=== PATIENT | female | born 1975 | race Caucasian/White ===

== ENCOUNTER 2020-08-09 07:54 | Outpatient (REF) | payer MEDICAID, SELFPAY ==
[2020-08-09 08:30] LABS: MANUAL DIFF FLAG NO
[2020-08-09 08:34] LABS: Basophils Percent Auto 0.5 % (0-2); Eosinophils Absolute Auto 0.1 X10*3/uL (0.0-0.4); Eosinophils Percent Auto 1.4 % (0-4); Hematocrit 33.2 % (37-47); Hemoglobin 10.3 g/dl (12.0-16.0); Imm Gran Abs Auto 0.02 X10*3/uL (0.00-0.03); Imm Gran Pct Auto 0.3 % (0.0-0.4); Lymphocytes Absolute Auto 2.3 X10*3/uL (1.2-4.9); Lymphocytes Percent Auto 35.4 % (20-40); Mean Corpuscular Hemoglobin 27.7 pg (27.0-33.0); Mean Corpuscular Volume 89.2 fL (80-98); Mean Platelet Volume 10.2 fL (9.4-12.3); Monocytes Absolute Auto 0.5 X10*3/uL (0.1-1.2); Monocytes Percent Auto 7.9 % (2-11); Neutrophils Absolute Auto 3.6 X10*3/uL (2.0-8.3); Neutrophils Percent Auto 54.5 % (45-73); Platelet Count 298 X10*3/uL (160-400); Red Blood Count 3.72 X10*6/uL (4.20-5.50); White Blood Count 6.6 X10*3/uL (4.8-10.8)
[2020-08-09 08:57] LABS: Anion Gap 10 (12-20); Blood Urea Nitrogen 11 mg/dL (9-16); Calcium 9.2 mg/dL (8.4-10.2); Carbon Dioxide 26 mmol/L (22-29); Chloride 107 mmol/L (96-108); Estimated Glomerular Filt Rate > 60; Glucose Fasting 95 mg/dL (60-99); Potassium 4.7 mmol/l (3.3-5.1); Sodium 138 mmol/L (135-145)
== END 2020-08-09 07:55 | disposition home or self-care (01) ==
LOC: HO.LAB 07:54
PROVIDERS: PCP Internal Medicine; Visit Provider Nurse Practitioner Family
DX: M79.602 Pain in left arm (principal)
CPT/HCPCS: 36415; 80048; 85025

== ENCOUNTER 2020-08-15 09:58 | Outpatient (REF) | payer MEDICAID, SELFPAY ==
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
== END 2020-08-15 09:59 | disposition home or self-care (01) ==
LOC: HO.HOSX 09:58
PROVIDERS: PCP Internal Medicine; Referring Provider Internal Medicine; Visit Provider Physician Assistant
DX: M25.512 Pain in left shoulder (principal); M54.12 Radiculopathy, cervical region; M79.5 Residual foreign body in soft tissue
CPT/HCPCS: 73030; 99202

== ENCOUNTER 2020-08-21 16:39 | Outpatient (REF) | payer MEDICAID, SELFPAY | END 2020-08-21 16:40 | disposition home or self-care (01) | LOC: HO.LAB 16:39 | PROVIDERS: PCP Internal Medicine; Visit Provider Internal Medicine | DX: Z20.828 Contact with and (suspected) exposure to other viral communicable diseases (principal) | CPT/HCPCS: C9803; U0003 ==

== ENCOUNTER 2020-10-11 14:00 | Outpatient (RCR) | payer MEDICAID, SELFPAY ==
--- NOTE | 2020-09-20 16:27 | MHC.PT.EP ---
[facility] [place] Office [place] Office [place] Office [address] Maryann Dunaway [address] [phone] F: [phone] F: [phone] F: [phone] F: [phone] Physical Therapy Plan of Care Date of Evaluation: 09/20/20 Date of Surgery: Diagnosis: Pain in L shoulder, radiculopathy cervical region. Assessment: Assessment reveals mild decreased left shoulder AROM, severe pain and paresthesias with movement of the left shoulder, decreased neck ROM, impaired muscle length (neck musculature), decreased strength, impaired posture/postural awareness, and tenderness to palpation around the upper trap/scalenes/levator scap mm bilaterally. Related functional limitations include: difficulty sweeping, mopping, carrying groceries, cleaning the shower, washing her axilla region in the shower, lifting anything, and reaching. Pt will benefit from trial of PT intervention in order to reduce pain and improve function. Frequency and Duration: The patient will be seen 2x/week for 5 weeks, Short Term Goals: -In 3 weeks, Pt to report less than 8/10 pain with movement of the L shoulder. -In 3 weeks, Pt to improve cervical ROM in all impaired directions by at least 10 degrees. Alf Goals: -In 5 weeks, Pt will demonstrate I w/ HEP. -In 5 weeks, Pt to demonstrate the ability to reach for a light weighted object and retrieve it from a shelf above eye level. Treatment Plan: Modalities to reduce pain, spasms and effusion. Manual therapy to restore motion and function. Therapeutic exercise to improve strength and flexibility. Neuromuscular re-education for posture and balance. Therapeutic activities to return to functional activities of daily living. Electronically signed by: Bozena Moody PT, DPT Please sign and return to therapist. Thank you for your referral.
--- NOTE | 2020-10-22 12:16 | MHC.PT.DC ---
[facility] [place] Office [place] Office [place] Office [address] Maryann Dunaway [address] [phone] F: [phone] F: [phone] F: [phone] F: [phone] Physical Therapy Discharge Report Diagnosis: Pain in L shoulder, radiculopathy cervical region. Date of Surgery: Date of Evaluation: 09/20/20 Date of Discharge: 10/22/20 Treatments to Date: 6 Cancellations to Date: 0 No Shows to Date: 0 Discharge Status: Patient Elected to Stop Recommend MD Follow-up Discharge Summary: Pt called to inform us that she would like to be discharged due to continued paresthesias in the LUE and severe pain. Repeated motion testing and cervical spurling's test did not indicate cervical origin of paresthesias. She demonstrated full AROM of the L shoulder joint with pain. Trialed 1 visit of nerve glides. D/C at this time per Pt request. Recommend MD follow up. Electronically signed by: Bozena Moody PT, DPT Please sign and return to therapist. Thank you for your referral.
== END 2020-10-22 12:31 | disposition other institution (70) ==
LOC: HO.PT 14:00
PROVIDERS: Visit Provider Physician Assistant
DX: M54.12 Radiculopathy, cervical region (principal); M25.512 Pain in left shoulder
CPT/HCPCS: 97110; 97140; 97162; 97530; 97535

== ENCOUNTER 2020-10-26 14:02 | Outpatient (REF) | payer MEDICAID, SELFPAY ==
--- NOTE | ~2020-10-26 | XR_ITS ---
EXAMINATION: XR CERVICAL SPINE CLINICAL INFORMATION: Neck pain and radiculopathy per COMPARISON: None TECHNIQUE: 3 views of the cervical spine were obtained. FINDINGS: There is mild straightening of cervical lordosis. The vertebral heights and alignment is normal. There is loss of C4-C5 and C5-C6 disc heights with mild ventral spondylosis. No acute fracture or lytic process seen. The prevertebral soft tissues are normal. XR/XR cervical spine 3V IMPRESSION: Mild degenerative disc changes C4-C5 and C5-C6 disc levels with ventral spondylosis. No visible acute fracture or dislocation seen.
== END 2020-10-26 14:03 | disposition home or self-care (01) ==
LOC: HO.XRAY 14:02
PROVIDERS: PCP Internal Medicine; Visit Provider Nurse Practitioner Family
DX: M54.12 Radiculopathy, cervical region (principal); M79.5 Residual foreign body in soft tissue
CPT/HCPCS: 72040; 99202

== ENCOUNTER 2021-02-19 12:08 | Outpatient (REF) | payer MEDICAID, SELFPAY ==
--- NOTE | ~2021-02-19 | US_ITS ---
EXAMINATION: US PELVIS TRANSVAGINAL CLINICAL INFORMATION: Irregular menstruation. COMPARISON: None. TECHNIQUE: Transcutaneous and transvaginal pelvic ultrasound. Transvaginal scanning was performed after voiding to better evaluate the endometrium and adnexa. FINDINGS: The uterus measures 13.4 x 4.5 x 7.3 cm. The uterus is anteverted. No suspicious abnormalities region of the cervix. Nabothian cysts present. The uterine contour is smooth. The endometrium measures 1.2 cm. No focal abnormalities within the myometrium. The right ovary measures approximately 2.7 x 1.1 x 1.3 cm. The calculated right ovarian volume is approximately 2.0 mL. No abnormal adnexal mass is identified. There is normal vascular flow present. The left ovary measures 2.8 x 2.1 x 2.5 cm. The calculated left ovarian volume is approximately 7.9 mL. There is a 2.7 x 1.7 x 2.7 cm simple cyst present. No suspicious masses seen. There is normal vascularity present. No significant free pelvic fluid. US/US pelvic and transvaginal IMPRESSION: Simple-appearing left ovarian cyst. No significant abnormality appreciated.
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
== END 2021-02-19 12:09 | disposition home or self-care (01) ==
LOC: HO.US 12:08
PROVIDERS: PCP Internal Medicine; Visit Provider Internal Medicine
DX: N92.6 Irregular menstruation, unspecified (principal); W34.00XS Accidental discharge from unspecified firearms or gun, sequela
CPT/HCPCS: 70150; 76830; 76856

== ENCOUNTER 2021-06-11 12:51 | Outpatient (REF) | payer MEDICAID, SELFPAY ==
--- NOTE | ~2021-06-11 | US_ITS ---
EXAMINATION: US DIAGNOSTIC ULTRASOUND BREAST, LEFT CLINICAL INFORMATION: Left breast lump 12:00 position. COMPARISON: Mammogram of same day. TECHNIQUE: Ultrasound of the breast is performed with real-time andujar scale imaging and color Doppler. FINDINGS: Targeted ultrasound evaluation to region of palpable abnormality did not demonstrate any abnormal cystic or solid mass. No region of abnormal distal sound shadowing appreciated. Results are provided to the patient at time of visit by the technologist. US/US breast LT limited IMPRESSION: No mammographic or ultrasound findings to suggest malignancy. ASSESSMENT: BI-RADS 1: Negative RECOMMENDATION: 1. Patient should be managed based on the clinical impression 2. Otherwise, routine annual screening mammography.
--- NOTE | ~2021-06-11 | MM_ITS ---
EXAMINATION: MM DIAGNOSTIC DIGITAL BREAST TOMOSYNTHESIS, BILATERAL US TARGETED BREAST ULTRASOUND, LEFT CLINICAL INFORMATION: Left breast lump. There are bilateral breast implants. The lifetime risk of breast cancer based on the Tyrer-Cuzick Model is 6.5%. COMPARISON: Mammography: None. TECHNIQUE: Digital breast tomosynthesis is performed in both the craniocaudal and mediolateral oblique views along with computer-aided detection (CAD). Synthesized 2-D images are generated from the tomosynthesis. Huber implant displaced views also performed. Targeted left breast ultrasound. FINDINGS: There are scattered areas of fibroglandular density (ACR BI-RADS breast composition Category b). There are no significant masses, abnormal calcifications, or other abnormalities. Targeted ultrasound evaluation to region of palpable abnormality did not demonstrate any abnormal cystic or solid mass. No region of abnormal distal sound shadowing appreciated. Results are provided to the patient at time of visit by the technologist. MM/MM tomosynthesis diagnostic BI IMPRESSION: No mammographic or ultrasound findings to suggest malignancy. ASSESSMENT: BI-RADS 1: Negative. RECOMMENDATION: 1. Patient should be managed based on the clinical impression. 2. Otherwise, routine annual screening mammography. This patient's information was entered into a reminder system with a target due date for their next mammogram.
== END 2021-06-11 12:52 | disposition home or self-care (01) ==
LOC: HO.MAMMO 12:51
PROVIDERS: Visit Provider Advanced Practice Midwife
DX: N63.42 Unspecified lump in left breast, subareolar (principal)
CPT/HCPCS: 76642; 77062; 77066

== ENCOUNTER 2021-06-27 22:06 | Emergency (ER) | payer MEDICAID, SELFPAY ==
[2021-06-27 22:57] LABS: MANUAL DIFF FLAG NO
[2021-06-27 22:58] LABS: Basophils Percent Auto 0.3 % (0-2); Eosinophils Absolute Auto 0.1 X10*3/uL (0.0-0.4); Eosinophils Percent Auto 1.4 % (0-4); Hematocrit 38.7 % (37-47); Hemoglobin 13.4 g/dl (12.0-16.0); Imm Gran Abs Auto 0.02 X10*3/uL (0.00-0.03); Imm Gran Pct Auto 0.2 % (0.0-0.4); Lymphocytes Percent Auto 34.9 % (20-40); Mean Corpuscular HGB Conc 34.6 g/dl (31.0-35.0); Mean Corpuscular Hemoglobin 31.5 pg (27.0-33.0); Mean Corpuscular Volume 91.1 fL (80-98); Mean Platelet Volume 10.2 fL (9.4-12.3); Monocytes Absolute Auto 0.7 X10*3/uL (0.1-1.2); Monocytes Percent Auto 8.2 % (2-11); Neutrophils Absolute Auto 4.8 X10*3/uL (2.0-8.3); Platelet Count 263 X10*3/uL (160-400); Red Blood Count 4.25 X10*6/uL (4.20-5.50); Red Cell Distribution Width 12.4 % (11.0-16.0); White Blood Count 8.7 X10*3/uL (4.8-10.8)
[2021-06-27 23:01] VITALS: BP 110/66; PULSE 74; RESP 16; TEMP 36.6; O2SAT 95; BMI 31.8
[2021-06-27 23:19] LABS: Alanine Aminotransferase 16 U/L (0-31); Albumin Level 4.3 g/dL (3.5-5.0); Alkaline Phosphatase 81 U/L (39-117); Anion Gap 12 (12-20); Aspartate Amino Transferase 13 U/L (5-31); Bilirubin Total 0.3 mg/dL (0.0-1.0); Blood Urea Nitrogen 10 mg/dL (9-16); Carbon Dioxide 27 mmol/L (22-29); Chloride 106 mmol/L (96-108); Creatinine Clr Calc Pharmacy 79.6; Estimated Glomerular Filt Rate > 60; Glucose Random 99 mg/dL (60-115); Lipase 58 U/L (8-78); Potassium 4.2 mmol/L (3.3-5.1); Sodium 141 mmol/L (135-145); Total Protein 7.4 g/dL (6.5-8.0)
[2021-06-28 02:00] VITALS: BP 120/72; PULSE 55; RESP 15; TEMP 36.6; O2SAT 95
[2021-06-28] MEDS: Lidocaine HCl Viscous 2 % 15 ML SOLUTION 10 ML MUCOUS MEM (02:25)
[2021-06-28] MEDS: PHENobarb/Hyoscy/Atropine/Scop 10 ML ELIXIR PO (02:25)
[2021-06-28] MEDS: Magnesium Hydrox/Alum Hydrox 30 ML ORAL.SUSP PO (02:25)
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
== END 2021-06-28 03:08 | disposition home or self-care (01) ==
PROVIDERS: Emergency Provider Emergency Medicine Emergency Medical Services; PCP Internal Medicine
DX: K29.00 Acute gastritis without bleeding (principal)
CPT/HCPCS: 36415; 80053; 83690; 85025; 99283; 99284

== ENCOUNTER → 2021-10-14 13:12 | Outpatient (REF) | payer MEDICAID, SELFPAY | LOC: HO.CARD 13:12 | PROVIDERS: PCP Internal Medicine; Referring Provider Nurse Practitioner Primary Care; Visit Provider Internal Medicine | DX: R07.89 Other chest pain (principal); R00.1 Bradycardia, unspecified; R42 Dizziness and giddiness; R55 Syncope and collapse | CPT/HCPCS: 93005; 99202 ==

== ENCOUNTER → 2021-10-30 10:02 | Outpatient (REF) | payer MEDICAID, SELFPAY ==
--- NOTE | 2021-10-30 10:06 | ECG_ITS ---
Hook-up date: 2021-10-30 10:57:00 Duration: 28:05:00 Test Indications: SYNCOPE AND COLLAPSE Medications: 15575 QRS complexes * Ventricular ectopics which represent % of total QRS comp. 3 Supraventricular ectopics which represent <1 % of total QRS comp. * Paced QRS complexs which represent % of total QRS comp. VENTRICULAR ECTOPY * Isolated * Bigeminal Cycles * Couplets * Runs * Beats in Runs * Beats LONGEST at * BPM at :: -- * Beats FASTEST at * BPM at :: -- SUPRAVENTRICULAR ECTOPY 3 Isolated 0 Couplets 0 Runs 0 Beats in Runs * Beats LONGEST at * BPM at :: -- * Beats FASTEST at * BPM at :: -- HEART RATES 39 MIN at 05:23:35 2021-10-31 67 AVG 132 MAX at 06:58:59 2021-10-31 LONGEST RR 1.7200 secs at 05:01:11 2021-10-31 S-T LEVELS Channel 1 - 128 mm at 10:57:00 2021-10-30 - 128 mm at 10:57:00 2021-10-30 Channel 2 - 128 mm at 10:57:00 2021-10-30 - 128 mm at 10:57:00 2021-10-30 Channel 3 - 128 mm at 03:01:61 -- - 128 mm at 03:01:61 Underlying rhythm is sinus; Average ventricular rate 67/min; range 39-132/min; Very rare supraventricular ectopy; No sustained arrhythmias or pauses or heart blocks; Symptoms in diary including chest tightness, dizziness correspond to sinus rhythm. Referred By: Irma Hernandez Overread By: IRMA HERNANDEZ
--- NOTE | 2021-10-30 10:06 | CA_ITS ---
Acquisition Time: 2021-10-30 11:04:14 Total Exercise Time: 00:04:14 Test Indications: BRADYCARDIA Medications: SEE NOTES Protocol: LISA Max HR: 157 BPM 90% of Pred: 173 BPM Max BP: 156/076 mmHG Max Work Load: 6.0 METS Exercise stress test with exercise 4 min 14 sec of Lisa protocol, with moderate to severe shortness of breath and request to stop, no chest discomfort, without arrythmia, with normal chronotropic response ( achieving 90% MPHR, heart rate 157) and normotensive response to exercise, without EKG changes meeting criteria for ischemia. In recovery her breathing improved quickly with rest. Test reviewed with Dr Mcfadden. Referred By: David Armstrong Overread By: SHIRA VERGARA
== END ==
LOC: HO.CARD 10:02
PROVIDERS: Visit Provider Internal Medicine
DX: R55 Syncope and collapse (principal); R00.1 Bradycardia, unspecified
CPT/HCPCS: 93017; 93225; 93226

== ENCOUNTER → 2021-11-28 08:21 | Outpatient (REF) | payer MEDICAID, SELFPAY ==
--- NOTE | 2021-11-28 08:24 | CA_ITS ---
Transthoracic Echocardiogram Patient (Last, First, Middle): Vivi Narayanan, Gender: Female Date of : 1975 Age: 46 Procedure Date: 11/28/2021 Procedure Type: Transthoracic Echocardiogram Location: OP Height: 157.48 cm Weight: 78.93 kg BSA: 1.80 m2 Heart Rate: bpm BP: 95 / 65 mmHg Disposal Operator: DERIAN Referring MD: David Armstrong MD Parcel Post Clerk: Chico Sawyer MD Symptoms: I25.10 - Atherosclerotic heart disease of [place] coronary... Study Quality: Fair ECG Rhythm: Sinus Conclusions: - Normal study Findings Left Ventricle Normal left ventricular size, thickness, and systolic function. The visually estimated ejection fraction is between 60-65%. Spectral Doppler is indicative of a normal filling pattern. Measured peak global longitudinal endocardial strain is -19.1% which is within normal limits Right Ventricle Normal right ventricular cavity size and systolic function. Atria Both atria are normal in size. There is no evidence of interatrial shunt. Aortic Valve Normal aortic valve structure and function. There is no aortic valve stenosis. There is no aortic valve regurgitation. Mitral Valve Normal mitral valve structure and function. There is trace mitral valve regurgitation. There is no mitral valve stenosis. Pulmonic Valve The pulmonic valve is likely normal. There is trace pulmonic valve regurgitation. Tricuspid Valve Normal tricuspid valve structure. There is trace tricuspid valve regurgitation. The right ventricular systolic pressure is normal. Normal right atrial pressure. There is no evidence of pulmonary hypertension. Great Vessels All visible segments of the aorta are normal in size. The pulmonary artery was not well visualized. Venous The inferior vena cava is normal in size and collapses greater than 50% with inspiration. Pericardium/Pleural There is no evidence of pericardial effusion. Prior Study Comparison No prior study available for comparison. Measurements 2D Linear Measurements IVSd: 0.80 0.6-0.9/0.6-1.0 cm LVIDd: 5.00 3.9-5.3/4.2-5.9 cm LVIDd Index: 2.78 2.4-3.2/2.2-3.1 cm/m2 LVIDs: 3.06 2.0-3.6 cm LVPWd: 0.77 0.7-1.1 cm LA Diam: 3.50 2.7-3.8/3.0-4.0 cm LAIDs Index: 1.94 1.5-2.3 cm/m2 LV Mass: 165.07 67-162/88-224 g LV Mass Index: 91.71 43-95/49-115 g/m2 LVOT Diam: 2.00 3.0+(-)1.3 cm 2D Systolic Function EF 4C: 63.50 >55% EF 2C: 62.80 >55% EF BiP: 63.30 >55% Mitral Valve MV Pk E: 0.91 MV PK A: 0.67 MV Decel Time: 244.00 E/A: 1.40 E'Lateral: 13.90 E'Medial: 9.90 E/E' Med: 9.20 E/E' Lat: 6.60 PHT: 71.00 MVA PHT: 3.[address] [place]: 3.74 Aortic Valve AoV Pk [place]: 1.41 AoV Mn [place]: 0.96 AoV VTI: 0.32 AoV Pk Grad: 8.00 Aov Mn Grad: 4.00 GRZEGORZ Cont.VTI: 2.51 LVOT LVOT Pk [place]: 1.06 LVOT Mn [place]: 0.73 LVOT VTI: 0.26 LVOT Pk Grad: 4.00 LVOT Mn Grad: 2.00 LVOT Diam: 2.00 LVOT Area: 3.14 Diastolic Function MV Pk E: 0.91 MV Pk A: 0.67 E/A: 1.40 E'Medial: 9.90 E/E' Med: 9.20 E' Laterial: 13.90 E/E' Lat: 6.60 Right Ventricle TAPSE (mm): 21.10 TVS' [place]: 10.30 Tricuspid Valve TR Pk [place]: 1.59 TR Pk Grad: 10.00 RA Press: 3.00 RVSP: 13.00 Great Vessels Aorta Sinus of Valsalva: 2.50 2.0-3.[address] [place]: 2.27 1.7-3.4 cm Ao Asc: 2.90 2.1-3.4 cm Ao Arch: 2.80 Updated in Other Vendor System with Status of Final Chico Sawyer MD electronically signed on 11/28/2021 11:51:39 AM with status of Final
== END ==
LOC: HO.CARD 08:21
PROVIDERS: Visit Provider Internal Medicine
DX: I25.10 Atherosclerotic heart disease of native coronary artery without angina pectoris (principal); R55 Syncope and collapse
CPT/HCPCS: 93306; 93356